=== PATIENT | female | born 1955 | race Caucasian/White ===

== ENCOUNTER → 2017-01-25 | Day surgery (SDC) | payer BC ==
[~2017-01-25] MED LIST: ATROPINE SULFATE 1% OPHT SOLN 2 ML BTL ONE; BUSP5TAB3 PO; CYCL-36 PO; CYCL1PAK PO; CYMB30CA PO; DEXAMETHASONE SOD PHOS 4 MG/ML VIAL ONE; EPINEPHrine HCL (1:1000) 1 MG/ML VIAL ONE; FLURBIPROFEN 0.03% OPHT SOLN 2.5 ML BTL ONE; HYALURONIDASE/LIDOCAINE/BUPIVACAINE 11 ML SYR TL ONE; HYDR-3534 PO; LACTATED RINGER'S 1000 ML INJ 1,000 ML ONE; LYRI200C PO; NEOMYCIN/POLYMYXIN/DEXAMETHASONE OPTH OINT 3.5 GM TUBE ONE; PHENYLEPHRINE HCL 2.5 % OPTH SOLN 15 ML BTL ONE; PREG100 PO; PROPOFOL 200 MG/20 ML AMP IV ONE; ROPI1TAB72 PO; SODIUM CHLORIDE 0.9% INJ 10 ML ONE; TROPICAMIDE 1% OPHT SOLN 15 ML BTL ONE; ceFAZolin INJ 1,000 MG VIAL ONE
--- NOTE | 2017-02-02 14:39 | TN ---
cc: MOSHE BARRY MD DATE OF SURGERY 01/25/2017 DATE OF 1955 PREOPERATIVE DIAGNOSIS Macular hole right eye POSTOPERATIVE DIAGNOSIS Macular hole right eye PROCEDURE Pars plana vitrectomy, membrane pealing, gas-fluid exchange right eye. ANESTHESIA MAC SURGEON Moshe Barry MD COMPLICATIONS None PROCEDURE After informed consent was obtained and the eye was anesthetized with peribulbar anesthesia, she was brought to the operating room and the right eye was prepared and draped in the usual sterile fashion. A wire lid speculum was placed in the patient's left eye. 23 gauge vitrectomy cannulas were then placed in the lower temporal, supratemporal and supranasal quadrants 3 millimeters posterior to the corneoscleral limbus. An infusion cannula was placed lower temporally. Core vitrectomy was then performed using the vitreous cutter. The vitrectomy was carried out as far as possible to the vitreous base. Posteriorly the internal limiting membrane was peeled off from around the macular hole using intraocular forceps. Careful indirect ophthalmoscopy with scleral depression was then performed and no peripheral retinal breaks were noted. A complete air fluid exchange was then performed. The air was then exchanged for 16% C3F8. The three vitrectomy cannulas were then removed. Subconjunctival injections of dexamethasone and Ancef were placed. An atropine drop, Maxitrol ointment and a patch and shield were then applied. The patient tolerated the procedure well. There were no complications. She will remain face down over the next five days. [facility]. Moshe Barry MD TAB/DJL /6:45 PM /2:23 PM
== END | disposition home or self-care (01) ==
LOC: ESDC 13:21
PROVIDERS: ATTEND Ophthalmology Retina Specialist
DX: H35.341 Macular cyst, hole, or pseudohole, right eye (principal)
CPT/HCPCS: 00145; 67042; J0171; J0690; J1100; J3010; J7120